=== PATIENT | male | born 1975 | race Caucasian/White ===

== ENCOUNTER 2018-01-25 18:18 | Emergency (ER) | payer SELFPAY ==
[~2018-01-25] VITALS: Ht 172.7 cm; Wt 81.6 kg
[2018-01-25] MEDS ORDERED: IBUPROFEN600 MG PO (20:43)
== END 2018-01-25 20:48 | disposition home or self-care (01) ==
LOC: ED 18:18
DX: S62.002A Unspecified fracture of navicular [scaphoid] bone of left wrist, initial encounter for closed fracture (principal); W51.XXXA Accidental striking against or bumped into by another person, initial encounter; Y93.89 Activity, other specified; Y92.89 Other specified places as the place of occurrence of the external cause; Y99.8 Other external cause status